=== PATIENT | female | born 2000 | race Caucasian/White ===

== ENCOUNTER 2023-09-12 10:15 | Outpatient (REF) | payer OTHER, SELFPAY ==
--- NOTE | 2023-09-12 09:45 | PAPFT_PTH ---
PAT[facility]: [facility]ydi Modi [id number] AGE/SX: 23/F ROOM: RE09/12/[address]: Polly Calero : 2000 BED: DIS: 09/12/2023 SPEC #: [id number] RECD: 09/12/23 17:44 STATUS: ISABEL REYovani #: [id number] MARIA LUISA: 09/12/23 09:[address]: Polly Calero DEPT: [facility] Cytology RECD BY: Keena Chavez Tissues: 1 - CX/ENDOCX FOR PAP SMEARS Procedures: PAP THIN PREP/[facility] Screening HPV DNA PROBE Comments: [id number]
[2023-09-12 14:59] LABS: ALT 40 U/L (14-59); AST 19 U/L (15-37); Albumin 4.1 g/dL (3.4-5.0); Alkaline Phosphatase 67 U/L (46-116); BUN 12 mg/dL (7-18); Bilirubin, Total 0.2 mg/dL (0.2-1.0); Calculated LDL 97 mg/dL (<100); Chloride 102 mmol/L (98-107); Cholesterol 198 mg/dL (<200); Estimated GFR 80.68 (mL/min/1.73m2); Glucose 106 mg/dL (74-106); HDL Cholesterol 37 mg/dL (40-60); Potassium 3.9 mmol/L (3.5-5.1); Sodium 138 mmol/L (136-145); Total Protein 8.3 g/dL (6.4-8.2); Triglyceride 322 mg/dL (<150)
== END 2023-09-12 10:16 | disposition home or self-care (01) ==
LOC: NCHCN 10:15
PROVIDERS: PCP Family Medicine; Visit Provider Family Medicine
DX: Z00.00 Encounter for general adult medical examination without abnormal findings (principal); Z12.4 Encounter for screening for malignant neoplasm of cervix; Z01.419 Encounter for gynecological examination (general) (routine) without abnormal findings
CPT/HCPCS: 80053; 80061; 88142; 87624

== ENCOUNTER 2024-03-11 16:59 | Outpatient (REF) | payer OTHER, SELFPAY ==
[2024-03-19 16:34] LABS: Testosterone, Free 0.82 ng/dL (<0.13-1.06); Testosterone, Total 38 ng/dL (8-60)
== END 2024-03-11 17:00 | disposition home or self-care (01) ==
LOC: NCHCN 16:59
PROVIDERS: PCP Family Medicine; Visit Provider Family Medicine
DX: N91.3 Primary oligomenorrhea (principal)
CPT/HCPCS: 84402; 84403; 84443

== ENCOUNTER 2024-10-26 16:02 | Outpatient (REF) | payer OTHER, SELFPAY ==
[2024-10-26 22:36] LABS: Estradiol 41 pg/mL (See Note); Prolactin 7.7 ng/mL (See Note)
[2024-10-26 22:42] LABS: FSH 7.3 mIU/mL (See Note)
== END 2024-10-26 16:03 | disposition home or self-care (01) ==
LOC: NCHCN 16:02
PROVIDERS: PCP Family Medicine; Visit Provider Family Medicine
DX: J02.9 Acute pharyngitis, unspecified (principal); N91.2 Amenorrhea, unspecified
CPT/HCPCS: 82670; 83001; 84146; 87070